=== PATIENT | male | born 1945 | race Caucasian/White ===

== ENCOUNTER 2016-11-06 08:22 | Outpatient (CLI) | payer MEDICARE, OTHER | END 2016-11-06 08:23 | disposition home or self-care (01) | LOC: LAB.F 08:22 | PROVIDERS: ATTEND Physician Assistant Medical | DX: Z12.5 Encounter for screening for malignant neoplasm of prostate (principal) | CPT/HCPCS: 36415; G0103; 84153 ==

== ENCOUNTER 2016-12-03 11:06 | Outpatient (CLI) | payer MEDICARE, OTHER ==
--- NOTE | 2016-12-03 15:56 | XRAY Report ---
THREE VIEW LEFT FOOT: 12/03/2016 CLINICAL INDICATION: Pain. FINDINGS: AP, lateral, and oblique views of the left foot demonstrate mild osteoarthritic changes. T here is no evidence of acute fracture or dislocation. No radiopaque foreign body is seen in the soft tissues. IMPRESSION: MILD OSTEOARTHRITIC CHANGES. JOB #: [id number] EXT JOB #:[id number]
== END 2016-12-03 11:07 | disposition home or self-care (01) ==
LOC: DI.S 11:06
PROVIDERS: ATTEND Family Medicine
DX: M19.072 Primary osteoarthritis, left ankle and foot (principal)

== ENCOUNTER 2017-02-23 07:49 | Outpatient (CLI) | payer MEDICARE, OTHER ==
[2017-02-23 10:54] LABS: BASOPHILS % (AUTO) 0.6 %; EOSINOPHILS # (AUTO) 0.1 10^3/uL (0.0-0.7); HGB - HEMOGLOBIN 15.4 g/dL (14.0-18.0)
[2017-02-23 10:55] LABS: BILIRUBIN,URINE NEGATIVE (NEGATIVE); PH,URINE 6.5 PH (5.0-7.5)
[2017-02-23 10:56] LABS: EOSINOPHILS % (AUTO) 1.8 %; HCT - HEMATOCRIT 45.3 % (42.0-52.0); LYMPHOCYTES # (AUTO) 1.3 10^3/uL (1.5-3.5); LYMPHOCYTES % (AUTO) 25.6 %; MEAN CORPUSCULAR HEMOGLOBIN 32.8 pg (27.0-31.0); MEAN CORPUSCULAR VOLUME 96.5 fL (80.0-94.0); MEAN PLATELET VOLUME 9.3 fL (7.4-11.4); MONOCYTES # (AUTO) 0.5 10^3/uL (0.0-1.0); MONOCYTES % (AUTO) 9.9 %; NEUTROPHILS # (AUTO) 3.2 10^3/uL (1.5-6.6); NEUTROPHILS % (AUTO) 62.1 %; NUCLEATED RED BLOOD CELLS AUTO 0.1 /100WBC; RED BLOOD COUNT 4.69 10^6/uL (4.70-6.10); RED CELL DISTRIBUTION WIDTH 14.2 % (12.0-15.0); UNCORRECTED WHITE BLOOD COUNT 5.1 x10^3/uL; WHITE BLOOD COUNT 5.1 x10^3/uL (4.8-10.8)
[2017-02-23 11:03] LABS: UR CULTURE IF IND NOT INDICATED; WBC,URINE 0-3 /HPF (0-3)
[2017-02-23 11:09] LABS: ALBUMIN/GLOBULIN RATIO 1.3 (1.0-2.2); BILIRUBIN,TOTAL 0.9 mg/dL (0.2-1.0); CALCIUM 9.5 mg/dL (8.5-10.3); CREATININE 0.8 mg/dL (0.6-1.2); POTASSIUM 4.2 mmol/L (3.5-5.0); TOTAL PROTEIN 7.2 g/dL (6.7-8.2)
[2017-02-27 16:36] LABS: TEST RESULT REPORT (())
== END 2017-02-23 07:50 | disposition home or self-care (01) ==
LOC: LAB.F 07:49
PROVIDERS: ATTEND Physician Assistant Medical
DX: I10 Essential (primary) hypertension (principal); R35.0 Frequency of micturition; R35.1 Nocturia; E29.8 Other testicular dysfunction
CPT/HCPCS: 36415; 80053; 81001; 81599; 84402; 84403; 85025; 87086

== ENCOUNTER 2017-03-23 08:59 | Outpatient (CLI) | payer MEDICARE, OTHER | END 2017-03-23 09:00 | disposition home or self-care (01) | LOC: LAB.F 08:59 | PROVIDERS: ATTEND Physician Assistant Medical | DX: E29.8 Other testicular dysfunction (principal) | CPT/HCPCS: 36415; 81599 ==

== ENCOUNTER 2018-01-26 15:49 | Outpatient (CLI) | payer MEDICARE | END 2018-01-26 15:50 | disposition short-term general hospital (02) | LOC: EMS 15:49 | PROVIDERS: ATTEND Surgery | DX: M54.2 Cervicalgia (principal); R53.83 Other fatigue; W13.2XXA Fall from, out of or through roof, initial encounter; Y93.H9 Activity, other involving exterior property and land maintenance, building and construction; Y92.007 Garden or yard of unspecified non-institutional (private) residence as the place of occurrence of the external cause | CPT/HCPCS: A0170; A0425; A0427 ==

== ENCOUNTER 2018-02-01 08:51 | Outpatient (CLI) | payer MEDICARE, OTHER | END 2018-02-01 08:52 | disposition home or self-care (01) | LOC: LAB.F 08:51 | PROVIDERS: ATTEND Physician Assistant Medical | DX: R35.0 Frequency of micturition (principal); R35.1 Nocturia; Z12.5 Encounter for screening for malignant neoplasm of prostate; E29.8 Other testicular dysfunction | CPT/HCPCS: 36415; 81599; 84402; 84403; G0103; 81001; 84153; 87086 ==

== ENCOUNTER 2018-04-27 15:04 | Outpatient (CLI) | payer MEDICARE, OTHER ==
--- NOTE | 2018-04-28 10:40 | MRI Report ---
Reason: COMPLETE ROTATR-CUFF TEAR/RUPTR OF LEFT SHOULDER, Procedure Date: 04/27/2018 Accession Number: [id number] / [id number] Procedure: MRI - Shoulder LT W/O CPT Code: FULL RESULT: EXAM: LEFT SHOULDER MRI WITHOUT CONTRAST EXAM DATE: 04/27/2018 04:04 PM. CLINICAL HISTORY: Complete rotator cuff tear or rupture. Left shoulder pain for several months. COMPARISON: LEFT SHOULDER 06/17/2015 11:20 AM. TECHNIQUE: Multiplanar, multisequence T1-weighted and fluid-sensitive sequences of the shoulder without contrast. Other: None. FINDINGS: Acromioclavicular Region: The acromion is type II. There is severe osteoarthritis of the acromioclavicular joint with edema of the adjacent ends of the acromion and clavicle. Inferiorly projecting osteophytes narrow the subacromial space. The bursa communicates with the glenohumeral joint space. Glenohumeral Region: Superior subluxation of the humeral head. There is moderate to severe thinning of the glenohumeral hyaline cartilage. There are cysts in the greater and lesser tuberosity and the posterior superior bony glenoid. Bone Marrow: See above. Labrum: There is a large posterior and inferior labral tear, adjacent to the subchondral cysts in the bony glenoid. The superior labrum appears intact. Musculature/Rotator Cuff: Complete rupture and atrophy of supraspinatus and infraspinatus. Severe tendinosis and high-grade tearing of subscapularis, with moderate atrophy. Biceps Tendon: Severe tendinosis and partial-thickness tear of the long head of biceps. The tendon is medially dislocated. Other: The subcutaneous tissues are unremarkable. IMPRESSION: 1. Since the prior study, there has been complete rupture and atrophy of supraspinatus and infraspinatus. There is near complete rupture of subscapularis with moderate atrophy. 2. Moderate glenohumeral osteoarthritis with superior subluxation of the humeral head. 3. Cyst in the posterior superior bony glenoid suggest prior trauma. Posterior and inferior labral tear. 4. Tendinosis, partial thickness tear and medial dislocation of the long head of biceps. [facility] MUSCULOSKELETAL RADIOLOGY SECTION
== END 2018-04-27 15:05 | disposition home or self-care (01) ==
LOC: DI 15:04
PROVIDERS: ATTEND Orthopaedic Surgery
DX: M75.122 Complete rotator cuff tear or rupture of left shoulder, not specified as traumatic (principal); M19.012 Primary osteoarthritis, left shoulder; M85.612 Other cyst of bone, left shoulder; S46.112A Strain of muscle, fascia and tendon of long head of biceps, left arm, initial encounter